=== PATIENT | female | born 1990 | race Caucasian/White ===

== ENCOUNTER 2016-11-08 13:31 | Emergency (ER) | payer OTHER ==
[~2016-11-08] VITALS: Ht 149.9 cm; Wt 60.0 kg
[2016-11-08 13:33] VITALS: BP 119/78; PULSE 97; RESP 16; TEMP 98.8; O2SAT 99
--- NOTE | 2016-11-08 13:35 | PD ---
Physical Exam Time Seen by Provider: 13:34 Narrative 25 y/o female with lower abdominal pain for 2 days. Denies n/v/d/c, vaginal bleeding/discharge, dysuria or increased urinary frequency/urgency. Vital signs reviewed. Seen at triage desk. Awaiting bed placement. Data Data Last Documented VS Vital Signs Date Time Temp Pulse Resp B/P Pulse Ox O2 Delivery O2 Flow Rate FiO2 11/08/16 13:33 98.8 97 16 119/78 99 MDM Medical Record Reviewed: Yes Supervised Visit with JD: Helio Bear November 08, 2016 13:35
[2016-11-08 15:21] LABS: BACTERIA, URINE FEW /hpf; BLOOD, URINE NEG (NEG); COMMENT (UR) CULTURE INDICATED; CULTURE IF INDICATED CULTURE INDICATED; GLUCOSE,URINE NEG (NEG); KETONE, URINE NEG (NEG); MUCUS URINE FEW /lpf (OCC); NITRITE,URINE NEG (NEG); PH, URINE 6.5 (5.0-8.5); SQUAMOUS EPITHELIAL CELL URINE 13 /hpf (0-5); URINE COLOR YELLOW (YELLW/STRAW)
[2016-11-08] MEDS ORDERED: NITR100C4 PO (15:51)
--- NOTE | 2016-11-08 15:54 | PD ---
HPI Chief Complaint: Abdominal Pain Time Seen by Provider: 14:30 Travel History International Travel<30 days: No Contact w/Intl Traveler<30days: No Traveled to known affect area: No History of Present Illness HPI Patient is a 25-year-old female presenting to the evaluation of abdominal pain. Patient states and present for 2-3 days, she localizes it to the lower abdomen. She states the pain is intermittent with exacerbations that are aching and throbbing. She reports having a menstrual cycle on 03 November that lasted 2 days. She states it was very heavy and she is passing a lot of clots. She does report a history of ovarian cysts. She denies any nausea, vomiting, fever, chills, chest pain, shortness of breath. Patient is monogamous relationship, she is currently . She does report vaginal discharge which is clear and malodorous. She denies any dysuria but reports frequency and hesitancy. PFSH Past Medical History Autoimmune Disease: Yes (sarcoidosis) Reproductive: Yes (endometriosis) ?: Not LMP: 11/06/2016 Past Surgical History Section: Yes Tonsillectomy: Yes Social History Alcohol Use: No Tobacco Use: Yes Substance Use: No Allergies-Medications (Allergen,Severity, Reaction): Coded Allergies: No Known Allergies (Unverified , 11/08/16) Reported Meds & Prescriptions Reported Meds & Active Scripts Active No Active Prescriptions or Reported Medications Review of Systems Except as stated in HPI: all other systems reviewed are Neg Gastrointestinal: Positive: Abdominal Pain Genitourinary: Positive: Frequency, Hesitancy, Discharge, No: Pelvic Pain, Vaginal Bleeding Physical Exam Narrative GENERAL: Well-developed, well-nourished, alert female. Resting comfortably in no acute distress. SKIN: Focused skin assessment warm/dry. HEAD: Atraumatic. Normocephalic. EYES: Pupils equal and round. No scleral icterus. No injection or drainage. ENT: No nasal bleeding or discharge. Mucous membranes pink and moist. NECK: Trachea midline. No JVD. CARDIOVASCULAR: Regular rate and rhythm. No murmur appreciated. RESPIRATORY: No accessory muscle use. Clear to auscultation. Breath sounds equal bilaterally. GASTROINTESTINAL: Abdomen soft, non-tender, nondistended. Hepatic and splenic margins not palpable. Bowel sounds, no rebound, no guarding. MUSCULOSKELETAL: No obvious deformities. No clubbing. No cyanosis. No edema. NEUROLOGICAL: Awake and alert. No obvious cranial nerve deficits. Motor grossly within normal limits. Normal speech. PSYCHIATRIC: Appropriate mood and affect; insight and judgment normal. Data Data Last Documented VS Vital Signs Date Time Temp Pulse Resp B/P Pulse Ox O2 Delivery O2 Flow Rate FiO2 11/08/16 13:33 98.8 97 16 119/78 99 Orders Urinalysis - C+S If Indicated (11/08/16 14:38) Ed Urine Pregnancytest Poc (11/08/16 14:38) Gc And Chlamydia Pcr (11/08/16 14:49) Wet Prep Profile (11/08/16 14:49) Urine Culture (11/08/16 14:52) Labs Laboratory Tests Test 11/08/16 14:52 Urine Color YELLOW Urine Turbidity HAZY Urine pH 6.5 Urine Specific [place] 1.020 Urine Protein NEG mg/dL Urine Glucose (UA) NEG mg/dL Urine Ketones NEG mg/dL Urine Occult Blood NEG Urine Nitrite NEG Urine Bilirubin NEG Urine Urobilinogen 2.0 MG/DL Urine Leukocyte Esterase MOD Urine RBC 1 /hpf Urine WBC 11 /hpf Urine Squamous Epithelial 13 /hpf Cells Urine Bacteria FEW /hpf Urine Mucus FEW /lpf Microscopic Urinalysis Comment CULTURE INDICATED MDM Medical Decision Making Medical Screen Exam Complete: Yes Emergency Medical Condition: Yes Interpretation(s) Laboratory Tests Test 11/08/16 14:52 Urine Color YELLOW Urine Turbidity HAZY Urine pH 6.5 Urine Specific [place] 1.020 Urine Protein NEG mg/dL Urine Glucose (UA) NEG mg/dL Urine Ketones NEG mg/dL Urine Occult Blood NEG Urine Nitrite NEG Urine Bilirubin NEG Urine Urobilinogen 2.0 MG/DL Urine Leukocyte Esterase MOD Urine RBC 1 /hpf Urine WBC 11 /hpf Urine Squamous Epithelial 13 /hpf Cells Urine Bacteria FEW /hpf Urine Mucus FEW /lpf Microscopic Urinalysis Comment CULTURE INDICATED Vital Signs Date Time Temp Pulse Resp B/P Pulse Ox O2 Delivery O2 Flow Rate FiO2 11/08/16 13:33 98.8 97 16 119/78 99 Differential Diagnosis UTI versus pelvic inflammatory disease versus STD versus bacterial vaginosis versus ovarian cyst versus very torsion versus other Narrative Course Patient is a 25-year-old female presenting to the emergency department for evaluation of lower abdominal pain. Patient's vital signs are stable, pain is been ongoing for 2-3 days. Abdominal exam was benign on palpation. Urinalysis is indicative of urinary tract infection, reflux culture pending. Patient refuses pelvic exam and further testing stating that she needs sisal picker her son from school. Patient be given prescription for antibiotics, she was advised to return to emergency department for any new or worsening symptoms, she was also advised to return for a more full workup. Discussed the risks associated with leaving prior to a complete workup being performed. Patient verbalized understanding and states that she needs to go. Patient discharged home. Diagnosis Primary Impression: UTI (urinary tract infection) Qualified Code: N39.0 - Urinary tract infection without hematuria, site unspecified Additional Impression: Vaginal discharge Referrals: [facility] Primary Care Physician Patient Instructions: General Instructions, Urinary Tract Infection in Women ( ED) Additional Instructions: Follow-up with her primary doctor or at the [facility] clinic Return to the emergency department for any new or worsening symptoms Complete full course of antibiotics as prescribed Maintain adequate fluid intake Med/Other Pt SpecificInfo: Prescription(s) given Scripts Nitrofurantoin Monohydrate Macrocrystals 100 Mg [id number] Mg PO BID 7 Days Ref 0 Prov:Clair Everett 11/08/16 Disposition: 01 DISCHARGE HOME Condition: Stable Clair Everett November 08, 2016 15:54
[2016-11-09 03:49] LABS: CHLAMYDIA PCR NOT DETECTED (NOT DETECT); NEISSERIA PCR NOT DETECTED (NOT DETECT)
== END 2016-11-08 17:08 | disposition home or self-care (01) ==
LOC: NEPD 13:31
DX: N39.0 Urinary tract infection, site not specified (principal); B96.89 Other specified bacterial agents as the cause of diseases classified elsewhere; N89.8 Other specified noninflammatory disorders of vagina
CPT/HCPCS: 81001; 84703; 87086; 87491; 87591; 99284

== ENCOUNTER 2017-02-12 15:55 | Emergency (ER) | payer OTHER ==
[~2017-02-12] VITALS: Ht 149.9 cm; Wt 56.0 kg
[~2017-02-12 15:55] MED LIST: NITR100C4 PO
[2017-02-12 15:58] VITALS: BP 108/68; PULSE 84; RESP 18; TEMP 97.8; O2SAT 98
--- NOTE | 2017-02-12 16:27 | PD ---
Physical Exam Date Seen by Provider: Feb 12, 2017 Time Seen by Provider: 16:23 Narrative 26 y/o female with Hx IVDU with draining Abscess to the left radial wrist. Started 3 days ago. No fever or chills. No chest pain or SOB. Vital signs reviewed. Patient stable. Awaiting Bed placement. Data Data Last Documented VS Vital Signs Date Time Temp Pulse Resp B/P Pulse Ox O2 Delivery O2 Flow Rate FiO2 02/12/17 15:58 97.8 84 18 108/68 98 MDM Medical Record Reviewed: Yes Supervised Visit with JD: Yes Condition: Stable Nathan Coleman Feb 12, 2017 16:27
[2017-02-12] MEDS ORDERED: IBUP800T23 PO (18:13)
[2017-02-12] MEDS ORDERED: CEPH-460 PO (18:13)
[2017-02-12] MEDS ORDERED: BACT800T5 PO (18:13)
--- NOTE | 2017-02-12 18:14 | PD ---
HPI Chief Complaint: Skin Problem Time Seen by Provider: 18:12 Travel History International Travel<30 days: No Contact w/Intl Traveler<30days: No Traveled to known affect area: No History of Present Illness HPI 26-year-old female presents emergency Department with complaint of an abscess to her left wrist 3 days. Says it started drained purulent drainage. Denies fever, vomiting. Reports IV drug use and last injected heroin at approximately 12:00 today. No known allergies. Has no other medical complaints. Symptoms are mild in severity. No other metabolic factors or associated signs and symptoms. 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/12/17) Allergies-Medications (Allergen,Severity, Reaction): Coded Allergies: No Known Allergies (Unverified , 02/12/17) Reported Meds & Prescriptions Reported Meds & Active Scripts Active Bactrim DS (Sulfamethoxazole-Trimethoprim) 800-160 Mg Tab 1 Tab PO BID 10 Days Keflex (Cephalexin) 500 Mg Cap 500 Mg PO Q6H 10 Days Ibuprofen 800 Mg Tab 800 Mg PO Q6HR PRN Review of Systems Except as stated in HPI: all other systems reviewed are Neg Physical Exam Narrative GENERAL: Well-nourished, well-developed female patient, in no acute distress; afebrile, nontoxic-appearing SKIN: There is an indurated area to the anterior aspect of the left wrist which measures about 1.5 cm in diameter. It is fluctuant but there is no pointing or drainage. There is a zone of inflammation around it but no lymphangitis. Left upper extremity supple and non-tense with 2+ radial pulses and sensory intact. Multiple track elizabeth noted to bilateral forearms and to cubital areas. HEAD: Atraumatic. Normocephalic. EYES: Pupils equal and round. No scleral icterus. No injection or drainage. ENT: Mucosa pink and moist. Airway patent. NECK: Trachea midline. CARDIOVASCULAR: Regular rate. RESPIRATORY: No accessory muscle use. GASTROINTESTINAL: Flat. MUSCULOSKELETAL: No obvious deformities. No clubbing. No cyanosis. No edema. NEUROLOGICAL: Awake and alert. Oriented 3. No obvious cranial nerve deficits. Motor grossly within normal limits. Normal speech. PSYCHIATRIC: Appropriate mood and affect; insight and judgment normal. Data Data Last Documented VS Vital Signs Date Time Temp Pulse Resp B/P Pulse Ox O2 Delivery O2 Flow Rate FiO2 02/12/17 15:58 97.8 84 18 108/68 98 MDM Medical Decision Making Medical Screen Exam Complete: Yes Emergency Medical Condition: Yes Medical Record Reviewed: Yes Differential Diagnosis Abscess, folliculitis, cellulitis Narrative Course 18-year-old female with an abscess of the left wrist. She reports last injecting IV drugs to the area about 3 weeks ago. The abscess formed approximate 3 days ago. Denies fever, vomiting. Last injected heroin about 12: 00 today. See my procedure note for incision and drainage. Wound culture pending. Patient up-to-date on tetanus vaccination. Ibuprofen, Keflex, Bactrim prescribed for home. Instructed patient to follow up with primary care provider. Patient verbalizes understanding and agreement with treatment plan. Patient is medically cleared and stable for discharge. Discussed reasons to return to the emergency department. Patient agrees with treatment plan. The patients vital signs are stable and the patient is stable for outpatient follow- up and treatment. Patient discharged home, stable and in no acute distress. Procedures Procedure Narrative INCISION AND DRAINAGE OF ABSCESS: The area was prepped and was sterilely draped. 4% topical lidocaine was used to anesthetize the area. The area was properly anesthetized. A number 11 scalpel was used to make a less than 0.5-cm incision across the area of the abscess. Cultures were obtained. The abscess was drained an irrigated with normal saline. Sterile dressing applied. Diagnosis Primary Impression: Abscess of wrist Referrals: Primary Care Physician Patient Instructions: Abscess (ED), Abscess Follow-up (ED), Abscess Incision and Drainage (ED), General Instructions Departure Forms: Tests/Procedures, Work Release Enter return to work date: Feb 13, 2017 Additional Instructions: Complete full course of antibiotics Warm compresses to the affected area Keep area clean and dry Ibuprofen or Tylenol as directed and as needed for pain and inflammation Follow-up with primary care provider Return to emergency department immediately with worsening of symptoms Med/Other Pt SpecificInfo: Prescription(s) given Scripts Sulfamethoxazole-Trimethoprim (Bactrim DS)800-160 Mg Tab1 Tab PO BID 10 Days Ref 0 Prov:Deisi Simental 02/12/17 Cephalexin (Keflex)500 Mg [id number] Mg PO Q6H 10 Days Ref 0 Prov:Deisi Simental 02/12/17 Ibuprofen 800 Mg [id number] Mg PO Q6HR PRN (PAIN) #30 TAB Ref 0 Prov:Deisi Simental 02/12/17 Disposition: 01 DISCHARGE HOME Condition: Stable Deisi Simental Feb 12, 2017 18:13
== END 2017-02-12 18:42 | disposition home or self-care (01) ==
LOC: NEPK 15:55
DX: L02.414 Cutaneous abscess of left upper limb (principal); F11.10 Opioid abuse, uncomplicated; F17.290 Nicotine dependence, other tobacco product, uncomplicated; D86.9 Sarcoidosis, unspecified
CPT/HCPCS: 10060; 87070; 87205